=== PATIENT | female | born 1955 | race Caucasian/White ===

== ENCOUNTER 2020-12-05 13:17 | Emergency (ER) | payer OTHER, SELFPAY ==
[2020-12-05 13:17] VITALS: BP 139/78; PULSE 88; RESP 18; TEMP 36.7; O2SAT 100
--- NOTE | 2020-12-05 14:00 | ED.LOWEXIN ---
HPI - Extremity Injury (Lower) General Chief Complaint: Extremity Injury, Lower Stated Complaint: Lt knee pain Source: patient and RN notes reviewed Limitations: no limitations History of Present Illness HPI Narrative: The overweight patient, previously mostly healthy, presents with left knee pain. Patient states she slipped and fell several months ago at home on carpet, resulting in abrasion and swelling then. She now complains of couple day, half week history of of knee discomfort that is worse with motion, better at rest. No bleeding, deformity, redness; zero x-ray today that follow-up with PMD [consider scanning]. Review of Systems Review of Systems: General/Constitutional: No weight loss,fever Eyes: N0: Redness,discharge Ears/Nose/Throat: No: Epistaxis,ear discharge Respiratory: Denies: Hemoptysis Gastrointestinal: No Vomiting, Bleeding-rectal Skin: No Lumps, eruption Neurologic: No Focal Weakness,Sz Hematologic: Denies: Petechiae/Purpura Psychiatric: No: Suicida ideationl All Other Systems: Reviewed and Negative PMFSH Comments At time of signature, agree with nursing past medical, surgical, social and family history. There is no relevant family history pertinent to the presenting complaint Exam Narrative: General Appearance: Well nourished/overweight, conjunctiva clear Mouth/Throat: Normal appearing, Normal lips,: Supple Respiratory: Airway patent, No respiratory distress MS-kneel: Normal strength (mostly intact, limited flexion/extension by pain), Tenderness (mild bilateral joint line, mild patellar tendon), no swelling , Other (no anterior drawer, no collateral laxity, unable to do Dawn) Skin: Warm, Dry, Normal color Neurological: A&O x3, , Normal affect Discharge Plan Discharge Clinical Impression: Derangement of knee, left Patient Disposition: Home, Self-Care Condition: Stable Instructions: Knee Bursitis (ED) Prescriptions: New prednisone 20 mg tablet 60 mg PO DAILY Qty: 15 RF: 0 acetaminophen-codeine 300-30 mg tablet 1 - 1.5 tablet PO HS PRN (Reason: pain) Qty: 10 RF: 0 tramadol 50 mg tablet 50 - 75 mg PO BID PRN (Reason: pain) Qty: 30 RF: 0 Follow-up/Referrals: Memo,Marce Wesley MD [Primary Care Provider] -
== END 2020-12-05 13:30 | disposition home or self-care (01) ==
PROVIDERS: Emergency Provider Emergency Medicine; PCP Internal Medicine
DX: M23.92 Unspecified internal derangement of left knee (principal); E78.00 Pure hypercholesterolemia, unspecified; I10 Essential (primary) hypertension; M19.90 Unspecified osteoarthritis, unspecified site
CPT/HCPCS: 99213; G0463

== ENCOUNTER → 2020-12-14 13:34 | Outpatient (CLI) | payer OTHER, SELFPAY ==
--- NOTE | ~2020-12-14 | XR_ITS ---
EXAMINATION: XR knee LT 3V DATE: 12/14/2020 14:02 INDICATION: Acute left knee pain. TECHNIQUE: 3 views of left knee including standing views were obtained. COMPARISON: None. FINDINGS: Bone alignment is normal. No fracture. There is mild tricompartmental osteoarthritis charac terized by tiny marginal osteophytes. No joint space narrowing. There is a small knee joint effusion. IMPRESSION: 1. Mild left knee osteoarthritis. 2. Small left knee joint effusion. Reviewed, dictated and finalized at location A.
== END ==
PROVIDERS: PCP Internal Medicine; Visit Provider Internal Medicine
DX: M17.12 Unilateral primary osteoarthritis, left knee (principal); M25.462 Effusion, left knee
CPT/HCPCS: 73562

== ENCOUNTER → 2022-12-09 08:36 | Outpatient (CLI) | payer MEDICARE, SELFPAY ==
--- NOTE | ~2022-12-09 | CT_ITS ---
EXAMINATION: CT sinus wo con DATE: 12/09/2022 08:51 INDICATION: Chronic ethmoidal sinusitis TECHNIQUE: Computed tomography (CT) of the paranasal sinuses was performed without intravenous contra st. The dose-length product (DLP) was 256.12 mGy-cm. Iterative reconstruction was used. COMPARISON: None FINDINGS: There is normal development and pneumatization of the paranasal sinuses. There is moderate mucosal thickening of the anterior and posterior ethmoidal air cells. Mild mucosal thickening is seen inferiorly in the maxillary sinuses. There is also mild mucosal thickening of the left sphenoid sinu s. There appear to be changes of right maxillary antrostomy surgery. The left infundibulum is essenti ally occluded. Visualized soft tissues are unremarkable. IMPRESSION: 1. Sinus disease as detailed above. Reviewed, dictated and finalized at location B.
== END ==
PROVIDERS: PCP Internal Medicine; Visit Provider Otolaryngology
DX: J32.2 Chronic ethmoidal sinusitis (principal)
CPT/HCPCS: 70486